=== PATIENT | female | born 1950 | race African-American/Black ===

== ENCOUNTER → 2021-04-26 | Outpatient (CLI) | payer BC ==
--- NOTE | 2021-04-26 13:31 | RAD ---
EXAM: Abdomen sonogram. HISTORY: Liver lesion on MRI at an outside facility. TECHNIQUE: Sonographic imaging of the abdomen was performed. COMPARISON: None. FINDINGS: The liver is normal in size. There is coarse hepatic echotexture. There is a 4.6 cm cyst wi thin the right hepatic lobe. There is also a suspected cyst with internal septation or adjacent cysts within the left hepatic lobe measuring 2.2 cm. The gallbladder is absent. The common bile duct is no rmal in caliber. The kidneys are normal in size. The spleen is normal in size. The aorta is normal in caliber. The inferior vena cava is patent. There is a suspected mixed solid and cystic lesion involv ing the junction of the pancreatic body and tail measuring 4.2 cm in maximum dimension. IMPRESSION: 1. Suspected mixed cystic and solid lesion involving the pancreas measuring 4.2 cm. There is no prior study for correlation at the time of dictation. Correlate with the reported recent MRI or obtained a nd a dedicated pancreatic protocol MRI/MRCP for characterization. 2. Multiple hepatic cysts. 3. Coarse hepatic echotexture. This can be seen with cirrhosis. Correlate with liver enzyme laborator y values. MRI is more sensitive for solid lesions in the setting of cirrhosis. 4. Cholecystectomy. Electronically signed by: Lizzie Olsen MD (04/26/2021 1:28 PM) [id number]
== END ==
LOC: US 12:25
PROVIDERS: ATTEND Family Medicine
DX: K76.89 Other specified diseases of liver (principal)
CPT/HCPCS: 76700

== ENCOUNTER → 2021-05-14 | Outpatient (CLI) | payer BC ==
[~2021-05-14] MED LIST: AMLO10TA4 PO; ATOR40TA59 PO; DENO60DI SQ; FLUT16SP NS; GABA300C18 PO; GADOTERATE 7.5 MMOL/15ML VIAL. IVP ONE; LOSA100T14 PO; METO-247 PO
--- NOTE | 2021-05-15 11:54 | KCIC ---
EXAMINATION: MRI abdomen with and without IV contrast. INDICATION:71 years, Female, pancreatic lesion seen on ultrasound exam. Further evaluation. TECHNIQUE: Multiplanar multisequence MRI of the abdomen was performed. 3-D coronal MRCP sequences per formed. COMPARISON: Ultrasound dated 04/26/2021.. FINDINGS: LOWER CHEST: Unremarkable. ABDOMEN: Complex 4.7 x 3.4 x 4.4 cm cluster versus single multiloculated rim-enhancing cystic mass with thick and thin enhancing internal septations seen in the pancreatic body. This mass is likely communicating with normal caliber main pancreatic duct. Questionable enhancing soft tissue component seen at the s uperior portion of the lesion best seen on arterial phase image (series 14 image 35). Pancreatic pare nchymal atrophy distal to the cystic lesion. Relatively normal morphology of the pancreatic head and uncinate process. Additional, there are a few cystic lesions in the distal pancreatic body and tail, the largest measures 0.7 cm (series 8 image 18). Normal morphology of the liver. Innumerable variable size nonenhancing cystic lesions throughout both hepatic lobes, the largest in the right hepatic lobe posteriorly measures 5.0 cm. No enhancing hepat ic lesion. No steatosis or iron deposition. Cholecystectomy. No biliary ductal dilation. Normal splee n. No adrenal nodule. No hydronephrosis in either kidney. Simple nonenhancing bilateral renal cortica l cysts, the largest in the upper pole right kidney measures 7 mm. No bowel dilation. No lymphadenopa thy in the abdomen by size criteria. Normal caliber abdominal aorta. Mesenteric arteries and portal v ein are patent. No ascites. MUSCULOSKELETAL: No suspicious osseous lesion. IMPRESSION: 1. Complex 4.7 cm cluster versus single multiloculated rim-enhancing pancreatic body cystic mass with thick and thin enhancing internal septations. This mass is likely communicating with normal caliber main pancreatic duct. Questionable enhancing soft tissue component seen at the superior portion of th e mass. Findings suggesting of side branch intraductal papillary mucinous neoplasm. However, other cy stic pancreatic neoplasm such as serous/mucinous cystadenoma cannot be excluded. Recommend further ev aluation with EUS and fluid/tissue sample. 2. Additional, few subcentimeter cystic lesions seen within the pancreatic body and tail, may represe nt side branch intraductal papillary mucinous neoplasms, without suspicious features. 3. Innumerable variable but predominantly subcentimeter size nonenhancing bilobar hepatic cystic lesi ons, findings can be seen in biliary hematomas and/or simple epithelial cysts. Electronically signed by: Sivakumar Martinez MD (05/15/2021 11:52 AM) [id number]
== END ==
LOC: KCIC MRI 13:23
PROVIDERS: ATTEND Family Medicine
DX: N28.1 Cyst of kidney, acquired (principal); K86.89 Other specified diseases of pancreas
CPT/HCPCS: 74183; 82565; A9575